=== PATIENT | female | born 1975 | race Caucasian/White ===

== ENCOUNTER 2020-11-24 15:00 | Emergency (ER) | payer OTHER ==
[2020-11-24 15:07] VITALS: BP 148/84; PULSE 81; RESP 17; TEMP 98.4
[2020-11-24] MEDS ORDERED: ACET/COD 300 MG/30 MG STARTER PACK 6 TAB BTL PO STA (15:25)
--- NOTE | 2020-11-24 15:44 | ED ---
Upper Extremity HPI - General Source: patient Mode of arrival: ambulatory Limitations: no limitations <Angelina Pitts - Last Filed: 11/24/20 16:06> <Deysi Curry - Last Filed: 11/26/20 13:29> - General Chief Complaint: Extremity Injury, Upper Stated Complaint: Arm Injury Time Seen by Provider: 11/24/20 15:14 - History of Present Illness Initial Comments: 45-year-old female patient presents to the emergency department today for evaluation of left shoulder pain. States a couple days ago she was lifting a c ase of water when she heard a pop. States she had mild discomfort at the time but was still able to use her arm. States today she is unable to move from without significant discomfort. States the pain is significantly worse whenever she attempts to lift anything with the arm. Denies any numbness or tingling. States her arm feels cold. Denies any swelling. Denies fever or chills. Denies any history of injury or issues with the shoulder. States she has been taking Tylenol without relief. She is unable to take ibuprofen due to her medications. Patient denies any recent rash, cough, shortness of breath, chest pain, abdominal pain, nausea, vomiting, diarrhea, constipation, back pain, numbness, tingling, dizziness, weakness, hematuria, dysuria, urinary urgency, urinary frequency, headache, visual changes, or any other complaints. (Angelina Pitts) - Related Data Allergies Allergy/AdvReac Type Severity Reaction Status Date / Time No Known Allergies Allergy Verified 11/24/20 15:07 Review of Systems ROS Other: All systems not noted in ROS Statement are negative. <Angelina Pitts - Last Filed: 11/24/20 16:06> ROS Other: All systems not noted in ROS Statement are negative. <Deysi Curry - Last Filed: 11/26/20 13:29> ROS Statement: Those systems with pertinent positive or pertinent negative responses have been documented in the HPI. Past Medical History Past Medical History: Hypertension History of Any Multi-Drug Resistant Organisms: None Reported Past Surgical History: Section Past Psychological History: Bipolar Smoking Status: Former smoker Past Alcohol Use History: None Reported Past Drug Use History: None Reported <Angelina Pitts - Last Filed: 11/24/20 16:06> General Exam Limitations: no limitations General appearance: alert, in no apparent distress, other (This is a well- developed, well-nourished adult female patient in no acute distress. Vital signs upon presentation are temperature 98.4F, pulse 81, respirations 17, blood pressure 148/84, pulse ox 99% on room air) Eye exam: Present: normal appearance, PERRL, EOMI. Absent: scleral icterus, conjunctival injection, periorbital swelling ENT exam: Present: normal exam, normal oropharynx, mucous membranes moist Respiratory exam: Present: normal lung sounds bilaterally. Absent: respiratory distress, wheezes, rales, rhonchi, stridor Cardiovascular Exam: Present: regular rate, normal rhythm, normal heart sounds. Absent: systolic murmur, diastolic murmur, rubs, gallop, clicks Extremities exam: Present: normal inspection, full ROM, normal capillary refill, other (In the left arm is pink, warm, dry. Cap refill less than 3 seconds. Radial pulses 2+. Patient has limited range of motion due to increased pain with movement, she has approximately 45 forward flexion, 35 abduction and left 30 of hyperextension before significant pain.). Absent: tenderness, pedal edema, joint swelling, calf tenderness Neurological exam: Present: alert, oriented X3, CN II-XII intact Psychiatric exam: Present: normal affect, normal mood Skin exam: Present: warm, dry, intact, normal color. Absent: rash <Angelina Pitts - Last Filed: 11/24/20 16:06> Course Vital Signs 11/24/20 11/24/20 11/24/20 15:03 16:06 16:15 Temperature 98.4 F 98.4 F Pulse Rate 81 81 Respiratory 17 18 17 Rate Blood Pressure 148/84 148/84 O2 Sat by Pulse 99 99 Oximetry Medical Decision Making - Radiology Data Radiology results: report reviewed, image reviewed <Angelina Pitts - Last Filed: 11/24/20 16:06> <Deysi Curry - Last Filed: 11/26/20 13:29> - Medical Decision Making 45-year-old female patient presents to the emergency department today for evaluation of left shoulder injury. Physical examination did reveal a normal- appearing shoulder with no erythema or swelling over the joint. Neurovascular status was intact. She had limited range of motion due to increased pain with movement. X-ray was obtained and was negative. Did discuss possibility of rotator cuff injury. She will be discharged to follow-up with the manpower development specialist for further evaluation as soon as possible. Return parameters were discussed in detail. She verbalizes understanding and agrees with this plan. Case discussed with my attending Dr. Curry. (Angelina Pitts) I was available for consultation in the emergency department. The history and physical exam were done by the midlevel provider. I was consulted for this patients care. I reviewed the case with the midlevel provider and based on their presentation of the patient, I agree with the assessment, medical decision making and plan of care as documented. Chart was dictated using [employer] dictation software. Attempts were made to correct any dictation errors however some typographical errors may persist. Patient was seen during a national state of emergency due to the Covid-19 pandemic. (Deysi Curry) - Radiology Data 3 views of the left shoulder obtained. Report was reviewed in its entirety. Impression by Dr. Frazier shows normal three-view left shoulder. (Angelina Pitts) Disposition Is patient prescribed a controlled substance at d/c from ED?: No Time of Disposition: 16:04 <Angelina Pitts - Last Filed: 11/24/20 16:06> <Deysi Curry - Last Filed: 11/26/20 13:29> Clinical Impression: Injury of left shoulder Disposition: HOME SELF-CARE Condition: Good Instructions (If sedation given, give patient instructions): Rotator Cuff Injury (ED) Additional Instructions: Follow-up with manpower development specialist for further evaluation as soon as possible. Take medications as directed for pain control. Apply warm moist heat to the shoulder. Perform gentle range of motion several times throughout the day. Return to the emergency department for any new, worsening, or concerning symptoms. Referrals: Nonstaff,Physician [Primary Care Provider] - 1-2 days
--- NOTE | 2020-11-24 15:46 | XR ---
EXAMINATION TYPE: XR shoulder complete LT DATE OF EXAM: 11/24/2020 COMPARISON: None HISTORY: Pain, decreased range of motion TECHNIQUE: 3 view left shoulder FINDINGS: Humeral head articulates with the glenoid. No acute fracture or dislocation is evident. Dave e hypertrophy is at the acromioclavicular junction. Follow up exams can be performed 7-10 days from a cute trauma for continued pain. IMPRESSION: 1. Normal three-view left shoulder
== END 2020-11-24 16:15 | disposition home or self-care (01) ==
LOC: EC 15:00
DX: S49.92XA Unspecified injury of left shoulder and upper arm, initial encounter (principal); I10 Essential (primary) hypertension; Z87.891 Personal history of nicotine dependence; X50.9XXA Other and unspecified overexertion or strenuous movements or postures, initial encounter; Y93.89 Activity, other specified
CPT/HCPCS: 99283

== ENCOUNTER 2023-03-30 17:18 | Emergency (ER) | payer OTHER ==
[2023-03-30 17:47] VITALS: TEMP 97.7
--- NOTE | 2023-03-30 18:02 | ED ---
General Adult HPI - General Chief complaint: Nausea/Vomiting/Diarrhea Stated complaint: neck stiffness,poss allergic reaction Time Seen by Provider: 03/30/23 18:01 Source: patient Mode of arrival: ambulatory Limitations: no limitations - History of Present Illness Initial comments: Tiki is a 47yo F with PMH of migraines who presents to the ER via private vehicle with complaint of headache. Patient reports that 2 days ago she was seen by her primary care and diagnosed with pinkeye she is given antibiotic drops she's been taking. The patient seems to be improving. He states that the past 2 days she's also had a headache that seemed to start around the eyes and radiating through the back of her head. She now feels like her neck is a little bit stiff or tightening up bilaterally. She's had some chills but no documented fever. She states she feels nauseated but not had any vomiting. She states she just doesn't feel well. She's taken Excedrin without relief of the discomfort. - Related Data Allergies Allergy/AdvReac Type Severity Reaction Status Date / Time No Known Allergies Allergy Verified 03/30/23 17:47 Review of Systems ROS Statement: Those systems with pertinent positive or pertinent negative responses have been documented in the HPI. ROS Other: All systems not noted in ROS Statement are negative. Past Medical History Past Medical History: Hyperlipidemia, Hypertension History of Any Multi-Drug Resistant Organisms: None Reported Past Surgical History: Section Additional Past Surgical History / Comment(s): clarence layne Past Psychological History: Bipolar Smoking Status: Former smoker Past Alcohol Use History: None Reported Past Drug Use History: None Reported General Exam - General Exam Comments Initial Comments: Physical Exam GENERAL: Patient appears to not be feeling well, resting with lights off HENT: Normocephalic, Atraumatic. EYES: PERRL, EOMI No injection, erythema or purulence noted PULMONARY: Unlabored respirations. No audible rales rhonchi or wheezing was noted. CARDIOVASCULAR: There is a regular rate and rhythm without any murmurs gallops or rubs. ABDOMEN: Soft SKIN: Skin is clear with no lesions or rashes and otherwise unremarkable. : Deferred NEUROLOGIC: Patient is alert and oriented x3. Moving all extremities spontaneously No nuchal regidity, full ROM MUSCULOSKELETAL: Normal extremities with adequate strength and full range of motion. No lower extremity swelling or edema. No calf tenderness. PSYCHIATRIC: Normal psychiatric evaluation. Limitations: no limitations Course Vital Signs 03/30/23 17:42 Temperature 97.7 F Pulse Rate 96 Respiratory 19 Rate Blood Pressure 119/79 O2 Sat by Pulse 97 Oximetry Medical Decision Making - Medical Decision Making Patient was seen and evaluated, history is obtained from the patient Patient with history of migraines now having headache with bilateral paraspinal tension, no nuchal rigidity, no fever Patient is treated with a migraine cocktail labs were obtained and there is no acute abnormalities. Computed tomography scan was obtained and reviewed by myself see no obvious masses Upon reevaluation patient resting comfortably headache has resolved and as long as CT is read as negative by radiology shows comfortable plan for discharge Was pt. sent in by a medical professional or institution (, PA, [employer], urgent care, hospital, or long-term...) When possible be specific @ -No Did you speak to anyone other than the patient for history (EMS, parent, family, police, friend...)? What history was obtained from this source @ -No Did you review nursing and triage notes (agree or disagree)? Why? @ -I reviewed and agree with nursing and triage notes Were old charts reviewed (outside hosp., previous admission, EMS record, old EKG, old radiological studies, urgent care reports/EKG's, long-term records)? Report findings @ -No old charts were reviewed Differential Diagnosis (chest pain, altered mental status, abdominal pain women, abdominal pain men, vaginal bleeding, weakness, fever, dyspnea, syncope, headache, dizziness, GI bleed, back pain, seizure, CVA, palpatations, mental health, musculoskeletal)? @ -Differential Headache: Migraine, tension, cluster, carbon monoxide, central venous thrombosis, pension karma temporal arteritis, acute closure glaucoma, intercranial hemorrhage, mastoiditis, sinusitis, head injury, this is not meant to be an all-inclusive list. EKG interpreted by me (3pts min.). @ -As above X-rays interpreted by me (1pt min.). @ -None done CT interpreted by me (1pt min.). @ -As above U/S interpreted by me (1pt. min.). @ -None done What testing was considered but not performed or refused? (CT, X-rays, U/S, labs)? Why? @ -None What meds were considered but not given or refused? Why? @ -Toradol was considered held due to concern for possible need for LP, upon reevaluation headache was resolved Toradol no longer indicated Did you discuss the management of the patient with other professionals (professionals i.e. , PA, [employer], lab, RT, psych nurse, director social service, transmission builder, teacher, communications officer, patient case coordinator)? Give summary @ -No Was smoking cessation discussed for >3mins.? @ -No Was critical care preformed (if so, how long)? @ -No Were there social determinants of health that impacted care today? How? (Homelessness, low income, unemployed, alcoholism, drug addiction, transportation, low edu. Level, literacy, decrease access to med. care, [facility] [facility], rehab)? @ -No Was there de-escalation of care discussed even if they declined (Discuss DNR or withdrawal of care, Hospice)? DNR status @ -No What co-morbidities impacted this encounter? (DM, HTN, Smoking, COPD, CAD, Cancer, CVA, ARF, Chemo, Hep., AIDS, mental health diagnosis, sleep apnea, morbid obesity)? @ -None Was patient admitted / discharged? Hospital course, mention meds given and route , prescriptions, significant lab abnormalities, going to OR and other pertinent info. @ -Discharge Undiagnosed new problem with uncertain prognosis? @ -No Drug Therapy requiring intensive monitoring for toxicity (Heparin, Nitro, Insulin, Cardizem)? @ -No Were any procedures done? @ -No Diagnosis/symptom? @ -Migraine Acute, or Chronic, or Acute on Chronic? @ -Acute on chronic Uncomplicated (without systemic symptoms) or Complicated (systemic symptoms)? @ -Complicated, migraine with nausea Side effects of treatment? @ -No Exacerbation, Progression, or Severe Exacerbation? @ -No Poses a threat to life or bodily function? How? (Chest pain, [place], NM, pneumonia, PE, COPD, DKA, ARF, appy, cholecystitis, CVA, Diverticulitis, Homicidal, Suicidal, threat to staff... and all critical care pts) @ -No - Lab Data Result diagrams: 03/30/23 18:41 03/30/23 18:41 Lab Results 03/30/23 03/30/23 03/30/23 Range/Units 18:41 18:41 18:41 WBC 5.0 (3.8-10.6) k/uL RBC 4.10 (3.80-5.40) m/uL Hgb 12.1 (11.4-16.0) gm/dL Hct 35.0 (34.0-46.0) % MCV 85.4 (80.0-100.0) fL MCH 29.5 (25.0-35.0) pg MCHC 34.6 (31.0-37.0) g/dL RDW 12.6 (11.5-15.5) % Plt Count 254 (150-450) k/uL MPV 6.5 Neutrophils % 51 % Lymphocytes % 42 % Monocytes % 4 % Eosinophils % 1 % Basophils % 0 % Neutrophils # 2.5 (1.3-7.7) k/uL Lymphocytes # 2.1 (1.0-4.8) k/uL Monocytes # 0.2 (0-1.0) k/uL Eosinophils # 0.1 (0-0.7) k/uL Basophils # 0.0 (0-0.2) k/uL Sodium 138 (137-145) mmol/L Potassium 3.7 (3.5-5.1) mmol/L Chloride 105 (98-107) mmol/L Carbon Dioxide 28 (22-30) mmol/L Anion Gap 5 mmol/L BUN 12 (7-17) mg/dL Creatinine 0.47 L (0.52-1.04) mg/dL Est GFR (CKD-EPI)AfAm >90 (>60 ml/min/1.73 sqM) Est GFR (CKD-EPI)NonAf >90 (>60 ml/min/1.73 sqM) Glucose 94 (74-99) mg/dL Calcium 9.1 (8.4-10.2) mg/dL Total Bilirubin 0.2 (0.2-1.3) mg/dL AST 23 (14-36) U/L ALT 23 (4-34) U/L Alkaline Phosphatase 51 (38-126) U/L C-Reactive Protein <0.5 (<1.0) mg/dL Total Protein 6.3 (6.3-8.2) g/dL Albumin 3.7 (3.5-5.0) g/dL Urine Color Colorless Urine Appearance Clear (Clear) Urine pH 7.0 (5.0-8.0) Ur Specific [place] 1.005 (1.001-1.035) Urine Protein Negative (Negative) Urine Glucose (UA) Negative (Negative) Urine Ketones Negative (Negative) Urine Blood Negative (Negative) Urine Nitrite Negative (Negative) Urine Bilirubin Negative (Negative) Urine Urobilinogen <2.0 (<2.0) mg/dL Ur Leukocyte Esterase Negative (Negative) Disposition Clinical Impression: Headache Disposition: HOME SELF-CARE Instructions (If sedation given, give patient instructions): Migraine Headache (ED) Is patient prescribed a controlled substance at d/c from ED?: No Referrals: Nonstaff,Physician [Primary Care Provider] - 1-2 days
[2023-03-30] MEDS ORDERED: METOCLOPRAMIDE 5 MG/ML 2 ML VIAL IVP STA (18:27)
[2023-03-30] MEDS ORDERED: SODIUM CHLORIDE 0.9% 1,000 ML IV STA (18:27)
[2023-03-30] MEDS ORDERED: diphenhydrAMINE 50 MG/ML 1 ML VIAL IVP STA (18:27)
[2023-03-30 18:59] LABS: Basophils % (A) 0 %; Eosinophils # (A) 0.1 k/uL (0-0.7); Eosinophils % (A) 1 %; HGB 12.1 gm/dL (11.4-16.0); Lymphocytes # (A) 2.1 k/uL (1.0-4.8); Lymphocytes % (A) 42 %; MCH 29.5 pg (25.0-35.0); MCHC 34.6 g/dL (31.0-37.0); MCV 85.4 fL (80.0-100.0); Mean Platelet Volume 6.5; Monocytes # (A) 0.2 k/uL (0-1.0); Monocytes % (A) 4 %; Neutrophils # (A) 2.5 k/uL (1.3-7.7); Neutrophils % (A) 51 %; Platelet Count 254 k/uL (150-450); RDW 12.6 % (11.5-15.5)
[2023-03-30 19:09] LABS: Appearance,Urine Clear (Clear); Bilirubin,Urine Negative (Negative); Blood,Urine Negative (Negative); Color,Urine Colorless; Glucose,Urine (UA) Negative (Negative); Ketones,Urine Negative (Negative); Leukocyte Esterase,Urine Negative (Negative); Nitrite,Urine Negative (Negative); Protein,Urine Negative (Negative); Specific Gravity,Urine 1.005 (1.001-1.035); Urobilinogen,Urine <2.0 mg/dL (<2.0)
[2023-03-30 19:16] LABS: ALT 23 U/L (4-34); AST 23 U/L (14-36); African American GFR (CKD) >90 (>60 ml/min/1.73 sqM); Albumin 3.7 g/dL (3.5-5.0); Alkaline Phosphatase 51 U/L (38-126); Anion Gap 5 mmol/L; Blood Urea Nitrogen 12 mg/dL (7-17); C Reactive Protein <0.5 mg/dL (<1.0); Calcium 9.1 mg/dL (8.4-10.2); Carbon Dioxide 28 mmol/L (22-30); Chloride 105 mmol/L (98-107); Glucose 94 mg/dL (74-99); Non-African American GFR(CKD) >90 (>60 ml/min/1.73 sqM); Potassium 3.7 mmol/L (3.5-5.1); Sodium 138 mmol/L (137-145); Total Bilirubin 0.2 mg/dL (0.2-1.3); Total Protein 6.3 g/dL (6.3-8.2)
--- NOTE | 2023-03-30 20:26 | CT ---
EXAMINATION TYPE: CT brain wo con CT DLP: 1137.4 mGycm, Automated exposure control for dose reduction was used. DATE OF EXAM: 03/30/2023 7:29 PM COMPARISON: None. CLINICAL INDICATION:Female, 47 years old with history of headache, headache TECHNIQUE: Brain: Axial CT images of the brain were obtained with coronal and sagittal reformats created and rev iewed. Contrast used: None. Oral contrast used: None. FINDINGS: Brain: Extra-axial spaces: No abnormal extra-axial fluid collections. Ventricular system: Within normal limits Cerebral parenchyma: No acute intraparenchymal hemorrhage or mass effect. The dey-white junction is well differentiated. Cerebellum: Unremarkable. Mass effect: No evidence of midline shift. Intracranial vasculature: unremarkable Soft tissues: Normal. Calvarium/osseous structures: No depressed skull fracture. Paranasal sinuses and mastoid air cells: Mild scattered paranasal sinus disease. Visualized orbits: Orbital contents are intact. IMPRESSION: No acute intracranial process.
[2023-03-30 20:59] VITALS: BP 126/71; PULSE 71; RESP 18
== END 2023-03-30 20:59 | disposition home or self-care (01) ==
LOC: EC 17:18
DX: G43.909 Migraine, unspecified, not intractable, without status migrainosus (principal); I10 Essential (primary) hypertension; Z86.59 Personal history of other mental and behavioral disorders; Z87.891 Personal history of nicotine dependence
CPT/HCPCS: 36415; 80053; 85025; 86140; 81003; 84145; 70450; 99284; 96374; 96375; 96361; J1200; J2765